=== PATIENT | male | born 1985 | race Caucasian/White ===

== ENCOUNTER 2023-02-09 00:55 | Emergency (ER) | payer OTHER, SELFPAY ==
[2023-02-09 01:16] VITALS: BP 153/95; PULSE 91; RESP 16; TEMP 36.9; O2SAT 99; BMI 23.5
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
--- NOTE | 2023-02-09 01:33 | CT_ITS ---
[address] [address] Patient Name: YODIT HARTMAN MRN: [id number] date: 1985 Sex: M Assigned Patient Location: ER Current Patient Location: Accession/Order Number: [id number] Exam Date: 02/09/2023 01:50 Report Date: 02/09/2023 02:45 At the request of: ЕКАТЕРИНА SCHROEDER Procedure: CT cervical spine wo con CT cervical spine wo con INDICATION: 37 years old; Male . CLINICAL HISTORY: pain TECHNIQUE: CT imaging of the cervical spine was performed. IV contrast: None. Dose reduction techniques were achieved by using automated exposure control and/or adjustment of mA and/or kV according to patient size and/or use of iterative reconstruction technique. COMPARISON: None available. FINDINGS: POSTOPERATIVE CHANGES: None. ALIGNMENT: Mild straightening the normal cervical curve. COMPRESSION FRACTURES: No fracture or vertebral body collapse is seen. No bone displacement is seen. No asymmetric widening of the facets is seen. PREVERTEBRAL SOFT TISSUES: Normal. CRANIOCERVICAL JUNCTION: There is a normal relationship of the occipital condyles, lateral masses of C1, and articular surfaces of C2. The base of the dens and body of C2 are intact. There is normal predental space. POSTERIOR FOSSA: The cerebellar tonsils are above the foramen magnum. Disc levels: C2-C3: No disc herniation. No spinal canal or foraminal narrowing. C3-C4: Disc space narrowing posteriorly. Uncovertebral joint degeneration on the right with mild right foraminal stenosis. Central canal is patent. C4-C5: Shallow central protrusion type disc herniation. Central canal patent. Neural foramina patent. C5-C6: Disc bulging and endplate osteophyte formation with anterior osteophytes. Mild central canal stenosis. Mild right foraminal stenosis. C6-C7: Central protrusion type disc herniation. Mild to moderate central canal stenosis. Neural foramina are patent. C7-T1: No disc herniation. No spinal canal or foraminal narrowing. UPPER THORACIC SPINE: Please see the separate thoracic study for evaluation. OTHER: No thyroid nodule or adenopathy. IMPRESSION: 1. No fracture or vertebral body collapse. 2. Cervical spondylosis with superimposed protrusion type disc herniations at C4-C5 and C6-C7. Electronically authenticated by: CASEY MARTINEZ Date: 02/09/2023 02:45
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
--- NOTE | 2023-02-09 01:33 | CT_ITS ---
The [address] [address] Patient Name: YODIT HARTMAN MRN: [id number] date: 1985 Sex: M Assigned Patient Location: ER Current Patient Location: ED.MAIN Accession/Order Number: [id number] Exam Date: 02/09/2023 01:50 Report Date: 02/09/2023 02:37 At the request of: ЕКАТЕРИНА SCHROEDER Procedure: CT facial bones wo con EXAM: CT facial bones wo con HISTORY: pain COMPARISON: None. TECHNIQUE: Noncontrast axial CT images through the facial bones were obtained with coronal and sagittal reformats. Dose reduction techniques were achieved by using automated exposure control and/or adjustment of mA and/or kV according to patient size and/or use of iterative reconstruction technique. FINDINGS: Dental hardware causes streak artifact which renders evaluation of adjacent structures suboptimal. No acute facial fracture or dislocation is seen. There is mucosal thickening in the maxillary sinuses. Otherwise, the visualized paranasal sinuses and mastoid air cells are clear. The orbits and globes are unremarkable. No acute intracranial abnormality is seen in the imaged portions of the brain. There are multiple absent teeth. IMPRESSION: 1. No acute facial fracture or dislocation is seen. Electronically authenticated by: Kylie MIN Date: 02/09/2023 02:37
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
[2023-02-09 01:59] LABS: Basophils Percent Auto 0.3 % (0.2-2.0); Eosinophils Absolute Auto 0.2 10^3/uL (0.0-0.7); Eosinophils Percent Auto 3.5 % (0.9-7.0); Hematocrit 38.5 % (42.0-54.0); Hemoglobin 12.9 g/dL (14.0-18.0); Immature Granulocytes Abs Auto 0.01 10^3/uL (0.00-0.03); Immature Granulocytes Pct Auto 0.2 % (0.0-0.5); Lymphocytes Absolute Auto 1.9 10^3/uL (1.2-3.8); Lymphocytes Percent Auto 32.2 % (20.5-60.0); Mean Corpuscular HGB Conc 33.5 g/dL (29.9-35.2); Mean Corpuscular Hemoglobin 29.1 pg (25.9-34.0); Mean Corpuscular Volume 86.7 fL (80.0-94.0); Mean Platelet Volume 9.7 fL (9.5-13.5); Monocytes Absolute Auto 0.5 10^3/uL (0.3-0.8); Monocytes Percent Auto 8.4 % (1.7-12.0); Neutrophils Absolute Auto 3.3 10^3/uL (1.4-6.5); Neutrophils Percent Auto 55.4 % (43.0-75.0); Platelet Count 272 10^3/uL (150-450); Red Blood Count 4.44 10^6/uL (4.70-6.10); Red Cell Distribution Width 12.4 % (11.0-15.0); White Blood Count 5.9 10^3/uL (4.0-11.0)
[2023-02-09 02:15] LABS: Alanine Aminotransferase 27 U/L (16-63); Albumin Globulin Ratio 1.1; Albumin Level 3.8 g/dL (3.4-5.0); Alkaline Phosphatase 64 U/L (46-116); Anion Gap 12.1; Aspartate Amino Transferase 17 U/L (15-37); Bilirubin Total 0.2 mg/dL (0.2-1.0); Calcium 9.1 mg/dL (8.5-10.1); Carbon Dioxide 29.6 mmol/L (21.0-32.0); Chloride 103 mmol/L (98-107); Estimated GFR (African America >60 (>=60); Estimated GFR (Non-African Ame >60 (>=60); Globulin 3.6 g/dL; Glucose 111 mg/dL (74-106); Potassium 3.7 mmol/L (3.5-5.1); Sodium 141 mmol/L (136-145); Total Protein 7.4 g/dL (6.4-8.2)
[2023-02-09 02:17] LABS: Lactate/Lactic Acid 1.4 mmol/L (0.4-2.0)
[2023-02-09 03:17] LABS: Bilirubin Urine NEGATIVE (NEGATIVE); Blood Urine NEGATIVE (NEGATIVE); Clarity Urine CLEAR (CLEAR); Color Urine LT. YELLOW (YELLOW); Glucose Urine UA NEGATIVE (NEGATIVE); Ketones Urine NEGATIVE (NEGATIVE); Leukocyte Esterase Urine NEGATIVE (NEGATIVE); Nitrite Urine NEGATIVE (NEGATIVE); Protein Urine NEGATIVE (NEG/TRACE); Urobilinogen Urine 0.2 EU/dL (0.2-1.0); pH Urine 6.5 (5.0-9.0)
[2023-02-09 03:19] LABS: Urine Microscopic Indicated NO
[2023-02-09] MEDS: ORPHENADRINE CITRATE 100 MG TABLET.ER PO (03:22)
== END 2023-02-09 03:26 | disposition home or self-care (01) ==
PROVIDERS: Emergency Provider Internal Medicine
DX: M54.6 Pain in thoracic spine (principal); S39.012A Strain of muscle, fascia and tendon of lower back, initial encounter; V49.9XXA Car occupant (driver) (passenger) injured in unspecified traffic accident, initial encounter; Z79.899 Other long term (current) drug therapy; F17.210 Nicotine dependence, cigarettes, uncomplicated
CPT/HCPCS: 36415; 70486; 71260; 72125; 72128; 72131; 80053; 81003; 83605; 85025; 99284; Q9967